=== PATIENT | male | born 1955 | race Caucasian/White ===

== ENCOUNTER → 2022-06-26 10:44 | Outpatient (CLI) | payer MEDICARE, OTHER, SELFPAY ==
--- NOTE | ~2022-06-26 | XR_ITS ---
EXAMINATION: XR sacroiliac joints min 3V INDICATION: Sacrococcygeal disorders not elsewhere classified TECHNIQUE: Three views of the sacroiliac joints are obtained. COMPARISON: None available FINDINGS: Bone alignment is normal. There is no fracture. There is no abnormal erosion or sclerosis o f the sacroiliac joints. There appears to be superior fusion of the sacroiliac joints bilaterally. T here is mild osteoarthritis of the hips. IMPRESSION: 1. Bilateral fusion of the superior sacroiliac joints. No acute findings. Reviewed, dictated and finalized at location B.
--- NOTE | ~2022-06-26 | XR_ITS ---
EXAMINATION: XR lumbar spine 2-3V DATE: 06/26/2022 11:55 INDICATION: Low back pain TECHNIQUE: Anteroposterior and lateral views of the lumbar spine, and cone-down lateral view of the l umbosacral junction were obtained. COMPARISON: None. FINDINGS: Bone alignment is normal. There is no fracture. The vertebral body heights and alignment ar e normal. There is moderate facet joint osteoarthritis of the lower lumbar spine. Degenerated osteoph ytes project from the anterior endplates of multiple vertebral bodies. IMPRESSION: 1. Mild lumbar spondylosis without acute findings. Reviewed, dictated and finalized at location B.
== END ==
PROVIDERS: PCP Family Medicine; Visit Provider Family Medicine
DX: M53.3 Sacrococcygeal disorders, not elsewhere classified (principal); M54.50 Low back pain, unspecified; M43.06 Spondylolysis, lumbar region
CPT/HCPCS: 72100; 72202

== ENCOUNTER 2024-12-18 00:33 | Day surgery (SDC) | payer MEDICARE, OTHER, SELFPAY ==
--- OUTSIDE RECORDS SUMMARY | 2024-02-02 04:00 | XMS_ITS ---
Author Organization [facility] Address [address] [place] [address] Care Team Providers Care Cake Maker Name Role Phone Dr. Heather Burgos Primary Care Provider [phone] Migration, Provider Unavailable Unavailable REASON FOR VISIT EMR-Adam Encounters Encounter Location Date Provider Diagnosis [facility] [address] [place] [address] 02/02/2024 Provider Migration Plan Of Treatment Medication Medication Name Sig Start Date Stop Date Notes Furosemide 20 MG Tablet 1 Oral every day ; Duration: 07/26/2021 01/19/2022 ,discontinuereason:D i scontinued Fenofibrate 54 MG Tablet 1 Oral every ni ght at bedtime; Duration: 05/02/2023 10/28/2023 Vitamin D (Ergocalciferol) 1.25 MG (01869 UT) Capsule 1 Oral once a week; [...] 07/21/2022 12/10/2022 ,dis continuereason:Di scontinued *Reorder from [facility] for eRx and Interaction Alerts* Ketoconazole 2 % Shampoo External; Duration: 30 06/26/2022 07/25/2022 Atorvastatin Calcium 40 MG Tablet 1 Oral at bed time; Duration: 90 05/02/2023 08/20/2023 ,discontinuereason:D i scontinued Doxycycline Hyclate 100 MG Capsule 1 Oral two times a day; Duration: 10 06/26/2022 07/05/2022 Next Appt Details Provider Name:Enrique Dacosta [facility], 08/14/2025 10:30:00 AM, [address] [place], [address], [phone] Progress Notes * GINGER JamesDOB: (69 yo M)Acc No.[id number]:02/02/2024 Patient: James SHEEHAN :1955 A ge:68 Y S ex:Male Address:[address] [place] [phone] * Refills Stop Furosemide Tablet, 20 MG, [...] Stop Vitamin D (Ergocalciferol) Capsule, 1.25 MG (83410 UT), Oral, 10, 1, once a week, [...]
--- OUTSIDE RECORDS SUMMARY | 2024-02-03 04:00 | XMS_ITS ---
Author Organization [facility] Address [address] [place] [address] Care Team Providers Care Lmft Name Role Phone Dr. Heather Burgos Primary Care Provider [phone] Migration, Provider Unavailable Unavailable Allergies No Known [...] with Aloe oral; Duration: 0 *Reorder from [facility] for eRx and Interaction Alerts* 07/13/2021 [...] drinks:Socially Encounters Encounter Location Date Provider Diagnosis [facility] [address] [place] [address] 02/03/2024 Provider Migration Plan Of Treatment Next Appt Details Provider Name:Enrique arreaga, 08/14/2025 10:30:00 AM, [address] [facility], [place], [address], [phone] Progress Notes * James MILESDOB: (69 yo M)Acc No.[id number]:02/03/2024 Patient: James SHEEHAN :1955 A ge:68 Y S ex:Male Address:[address] [place] [phone] Subjective: * Chief Complaints: * E MR-Adam [...] oral , Notes to Pharmacist: *Reorder from [facility] for eRx and Interaction Alerts*Atorvastatin Calcium [...] oral , Notes to Pharmacist: *Reorder from [facility] for eRx and Interaction Alerts*Taking Atorvastatin [...]
--- NOTE | 2024-12-11 08:20 | PC.NURSE ---
[facility] has started construction of its new state of the art ER which will open Spring 2026. With this, we anticipate parking may be a challenge for some our surgical patients and families. Parking spaces are limited but are available for all Surgical, obstetrics, and ER patients sharing this lot. If you arrive and find you are having a hard time finding a parking space, please note that we understand the challenges, please drive around the hospital and park near Hospital Entrance 1. When you enter this entrance, you can ask a volunteer to direct or take you back to the surgical waiting area to check in. We appreciate everyone?s understanding of these expected challenges while we build for your future. Report to the Outpatient Waiting Room, entrance under the green pavilion located off [address], at time _6 am on date __12/18/24 . Planned Procedure Time: __7:30 am .? Time changes happen often and if your time is changed the preop area will call you the afternoon before. - You and your visitor will be asked to self-screen and do not enter if you have any COVID symptoms. Please call surgeon if you need to reschedule. - A mask is optional within the hospital at this time. Patients may have clear liquids (water, carbonated beverages, clear teas, apple juice) until 3 hours prior to surgery( (4:30 AM ) with a maximum of 20 ounces. - No food from midnight until time of surgery and no smoking, or chewing tobacco (or any form of nicotine). No chewing gum, candy or mints. Take only the following medications with a SIP of water on the morning of surgery: ____NONE DO NOT STOP ANY OF YOUR OTHER PRESCRIPTION MEDICATIONS PRIOR TO SURGERY EXCEPT THE FOLLOWING Hold all vitamins and supplements for 3 days per anesthesiologist.LAST DOSE Medications to discontinue per physician PATIENT STATE HOLD ASPIRIN _7 DAYS PRE OP PER DR VANESSA Date to take last dose____12/10/24 Please no make-up, nail hebrew, hairspray, perfume, deodorant, or body powder the day of surgery.? No jewelry (including any body piercings) or valuables the day of surgery, leave them at home.? Please take a shower or bath the night before, or the morning of, surgery with an antibacterial soap.? Wear comfortable, loose fitting clothing.? Children are encouraged to wear pajamas. - Jewelry must be removed prior to entering the operating room.? Rings and piercings that are not removed may be cut off. - The hospital will not accept responsibility for valuables.? - Please leave all valuables, including medications, at home the day of surgery. If you are going home after surgery, a licensed escort vehicle driver must drive you home.? - NO public transportation without another adult if you receive anesthesia. - We recommend that an adult stay with you for 24 hours following discharge. - We also recommend that you do not drive, make important decision, drink alcoholic beverages, or take any drugs that were not prescribed by your health care provider for at least 24 hours after your discharge time. Follow any additional instructions given to you from your surgeon. Telephone instructions given to __PATIENT and asked if any additional questions and then verbalized understanding. Patient advised to call surgeon office or pre surgery nurse liaison [phone] if any additional questions.
[2024-12-11 08:37] VITALS: BMI 30.2
--- NOTE | 2024-12-15 07:15 | PM.HPGS ---
History of Present Illness History of Present Illness Consent: Risks, benefits, and alternatives have been discussed and questions answered. Patient agrees to proceed with procedure. Chief complaint: Elev PSA Narrative: James Sargent is a 69 year old male with elevated PSA: 12/17/24: Care transferred to Dr. Ruiz after Dr. López care home 09/2024: PSA: 9.52 10/23/24: 4K score: 72.3 The?probability?of?having?aggressive?prostate?cancer: 4KScore?Range?%?Probability?95%?CI ?<5.0?4.1%?2.1%,??7.9% ?? 5.0?to?<10.0?9.6%?5.8%,?15.5% ? 10.0?to?<20.0?19.7%?14.8%,?25.8% ?? >?or?=??20.0? 49.4%?44.5%,?54.3% ?? >?or?=??20.0?49.4%?44.5%,?54.3% 10/2024: mpMRI: - volume: 29.6 - MANSI #1: PI-RADS 4: Left posterior apex - MANSI #2: PI-RADS 5: Midline anterior apex Review of Systems Review of Systems: All systems reviewed & are unremarkable except as noted in HPI and below Cardiovascular: Cardiovascular: Denies chest pain, Denies lightheadedness, Denies palpitations and Denies dyspnea Respiratory: Respiratory: Denies dyspnea Gastrointestinal: Gastrointestinal: Denies diarrhea, Denies nausea and Denies vomiting Genitourinary: Genitourinary: Denies hematuria and Denies dysuria Endocrine: Endocrine: Denies palpitations [facility] Social History Social History Smoking status: Never smoker Alcohol intake: current Drinks per week: 3 Living arrangements: with family Spiritual care concerns: No Meds Home Medications and Allergies Home Medications ?Medication ?Instructions ?Recorded ?Confirmed ?Type aspirin 81 mg capsule 81 mg PO DAILY 12/11/24 12/11/24 History atorvastatin 40 mg tablet 40 mg PO DAILY 12/11/24 12/11/24 History cholecalciferol (vitamin D3) 125 125 mcg PO DAILY 12/11/24 12/11/24 History mcg (5,000 unit) capsule cyanocobalamin (vitamin B-12) 500 250 mcg PO DAILY 12/11/24 12/11/24 History mcg tablet famotidine 20 mg tablet (Acid 20 mg PO PRN PRN heartburn 12/11/24 12/11/24 History Controller) fenofibrate 54 mg tablet 54 mg PO DAILY 12/11/24 12/11/24 History losartan 50 mg tablet 50 mg PO DAILY 12/11/24 12/11/24 History tamsulosin 0.4 mg capsule 0.4 mg PO DAILY 12/11/24 12/11/24 History Allergies Allergy/AdvReac Type Severity Reaction Status Date / Time No Known Allergies Allergy Verified 12/11/24 08:21 Exam Const: General: no acute distress Resp: Effort & Inspection: normal respiratory effort GI: Inspection: non-distended GI Palp: No abdominal tenderness and No Guarding due to palpation present (GI) Auscultation: normal bowel sounds Assessment and Plan Assessment and plan (1) Elevated PSA: Code(s): R97.20 - Elevated prostate specific antigen [PSA] Status: Acute Assessment and Plan: Transrectal ultrasound guided fusion biopsy prostate
--- OUTSIDE RECORDS SUMMARY | 2024-12-18 00:36 | XMS_ITS | Patient Health Record ---
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 Heather Burgos Primary Care Provider [phone] Enrique Paz Unavailable [phone] Heather Dominguez Unavailable [phone] Migration, Provider Unavailable Unavailable Allergies No Known Allergies Results Component Value Reference Range Flag Notes CBC w Auto Diff Reviewed date:08/06/2024 03:01:14 PM Interpretation: Performing Lab: Notes/Report: Test Performed by: [place] [address] [place] Tier: Justo Le DO WBC 6.1 4.0-11.7 K/mcL RBC 5.02 4.28-5.56 x10*6/mcL Hgb 15.1 13.0-17.0 g/dL Hct 44.7 38.1-48.9 % MCV 89.0 83.4-98.1 fL MCH 30.1 27.0-34.2 pg MCHC 33.8 31.8-35.3 g/dL RDW 12.8 12.0-16.4 % Platelets 209 149-393 K/mcL MPV 8.2 7.0-11.0 fL Neutro Auto 62.0 45.3-79.0 % Lymph Auto 24.8 11.8-45.9 % Stark Auto 9.8 4.4-12.0 % Eosinophil Auto 2.8 0.0-6.3 % Basophil Auto 0.6 0.2-1.6 % Neutro Absolute 3.8 2.4-8.4 x10*3/mcL Lymph Absolute 1.5 0.8-3.7 x10*3/mcL Stark Absolute 0.6 0.3-1.1 x10*3/mcL Eos Absolute 0.2 0.0-0.5 x10*3/mcL Comprehensive Metabolic Pane l Reviewed date:08/06/2024 03:01:14 PM Interpretation: Performing Lab: Notes/Report: Test Performed by: [place] [address] [place] Tier: Justo Le DO Glucose Lvl 136 74-109 mg/dL H ADA risk stratification for diabetes <100 mg/dL = Normal 100-125 mg/dL = Increased risk for future diabetes >=126 mg/dL = Diabetes, if on more than one testing occasion BUN 17 7-25 mg/dL Creatinine Lvl 1.07 0.70-1.30 mg/dL eGFR CKD-EPI 75 >=90 mL/min/1.73 m2 L The CKD-EPI equation is validated in individuals 18 years of age and older. It is less accurate in patients with extremes of muscle mass, restriction of dietary protein, ingestion of creatine, extra-renal metabolism of creatinine, or treatment with medications that affect renal tubular creatinine secretion. GFR Categories in Chronic Kidney Disease (CKD) GFR GFR (mL/min/1.73 Category: square meters): Interpretation: G1 90 or greater Normal or high* G2 60-89 Mild decrease* G3a 45-59 Mild to moderate decrease G3b 30-44 Moderate to severe decrease G4 15-29 Severe decrease G5 14 or less Kidney failure *In the absence of evidence of kidney damage, neither GFR category G1 nor G2 fulfill the criteria for CKD (Kidney Int Suppl 2013;3:1-150) Calcium Lvl 9.3 8.6-10.3 mg/dL Sodium Lvl 139 136-145 mmol/L Potassium Lvl 4.2 3.5-5.1 mmol/L Chloride Lvl 106 98-107 mmol/L CO2 28 21-31 mmol/L Anion Gap 5.0 <=16.0 mmol/L Alk Phos 66 34-104 unit/L Bilirubin Total 0.9 0.3-1.0 mg/dL Albumin Lvl 4.4 3.5-5.2 g/dL Protein Total 6.9 6.4-8.9 g/dL Albumin/Globulin Ratio 1.7 1.1-2.5 ALT 12 7-52 unit/L AST 12 13-39 unit/L L Lipase Level Reviewed date:08/06/2024 03:01:14 PM Interpretation: Performing Lab: Notes/Report: Test Performed by: [place] [address] [place] Tier: Justo Le DO Lipase Lvl 24 11-82 unit/L CT Abdomen and Pelvis with c linneat ([id number]) Reviewed date:08/07/2024 12:47:33 PM Interpretation: Performing Lab: Notes/Report: Thyroid Peroxidase {TPO} Ab- [facility] Reviewed date:09/02/2024 09:05:38 AM Interpretation: Performing Lab: Notes/Report: Test Performed by: [place] [address] [place] Tier: Justo Le DO TPO (Thyroid Peroxidase) See Below Chart Name Results Units Flag Ref Range Thyroid Peroxidase (TPO) Ab 0.6 0.0-9.0 Performed By: [facility] [address] [place] [id number] Director Pharmaceutical: Win Vines MD, PhD CLIA Number: [id number] Free Reviewed date:09/02/2024 09:05:38 AM Interpretation: Performing Lab: Notes/Report: Test Performed by: [place] [address] [place] Tier: Justo Le DO T4 Free 0.89 0.60-1.70 ng/dL T3 Total Reviewed date:09/02/2024 09:05:38 AM Interpretation: Performing Lab: Notes/Report: Test Performed by: [place] [address] [place] Tier: Justo Le DO T3 Total 1.14 0.78-2.00 ng/mL Thyroid Stimulating Hormone Reviewed date:09/02/2024 09:05:38 AM Interpretation: Performing Lab: Notes/Report: Test Performed by: [place] [id number] [place] Tier: Justo Le DO TSH 3.04 0.45-5.33 mcIU/mL Reason For Referral Reason [facility] , elevated PSA at 9.52 Diagnosis 1 Elevated prostate sp ecific antigen (PSA) (R97.20) Referral Organization [facility] Referring Provider First Name Enrique Referring Provider Last Name Brandi Referring Provider Speciality Physician Neuropsychiatric Aide Referred Provider Specialty Urology General Notes Maddie Hannon 0 08/15/2024 10:53:40 AM CDT >Referral faxed to [facility] [phone], Manuel Petra 12/10/2024 05:43:15 PM CDT >consult note in chart Referral Priority Routine Referral Appointment Date 09/17/2024 Medications Medication SIG (Take, Route, Frequency, Duration) Notes Start Date End Date Status Tamsulosin HCl 0.4 MG Capsule Take one (1) capsule by mouth every day Orally Once a day; Duration: 90 days Active Fenofibrate 54 MG Tablet 1 Oral every night at bedtime; Duration: 90 days 11/12/2023 Active Vitamin D-3 with Aloe oral; Duration: 0 *Reorder from [employer] for eRx and Interaction Alerts* 07/13/2021 Active Losartan Potassium 50 MG Tablet 1 Oral every day; Duration: 90 days 11/12/2023 Active Atorvastatin Calcium 40 MG Tablet 1 tablet Oral daily; Duration: 90 days at bedtime 11/12/2023 Active Famotidine 10 mg Tablet 1 Oral two times a day; Duration: 0 days As needed 08/16/2020 Active Vitamin B-12 1000 MCG Tablet Oral; Duration: 0 07/13/2021 Active Aspirin Adult Low Strength 81 MG Tablet Delayed Release 1 Oral every day; Duration: 0 08/16/2020 Active Immunizations Vaccine Route Administration Date Status Comme nts Zoster Unknown 11/27/2019 Administered Source VFC Code: : Zoster Unknown 02/05/2020 Administered Source VFC Code: : Typhoid, unspecified formulation Unknown 07/09/2008 Administered [facility]D ,sourcename : Historical information -from other registry Source VFC Code: : Tdap Unknown 05/18/2008 Administered Source VFC Code: : Tdap IM Intramuscular 12/11/2022 Administered ,[facility] ename : New immunization record ,immstatus : Complete Influenza, quadrivalent (IIV4), split virus, 6-35 months dosage Unknown 11/27/2019 Administered Source VFC Code: : Influenza, high-dose seasonal, quadrivalent, preservative free >65 yrs Unknown 12/28/2020 Administered Source VFC Code: : Influenza, high-dose seasonal, quadrivalent, preservative free >65 yrs IM Intramuscular 12/11/2022 Administered ,sourcename : N ew immunization record ,immstatus : Complete Influenza, high dose seasonal Unknown 11/17/2021 Administered Source VFC Code: : Hep B, adult (2 dose schedule) Unknown 05/18/2008 Administered Source VFC Code: : Hep B, adult (2 dose schedule) Unknown 06/23/2008 Administered Source VFC Code: : Hep B, adult (2 dose schedule) Unknown 12/08/2008 Administered Source VFC Code: : Hep A, Adult Unknown 02/15/1996 Administered Source VFC Code: : Hep A, Adult Unknown 10/10/1996 Administered Source VFC Code: : Pneumococcal polysaccharide PPV23 IM Intramuscular 10/21/2020 Administered ,sourcename : N ew immunization record ,immstatus : Complete Moderna Covid-19 Vaccine 1st dose IM Intramuscular 04/08/2020 Administered Source VFC Code: : Moderna Covid-19 Vaccine 1st dose IM Intramuscular 05/06/2020 Administered Source VFC Code: : Moderna Covid-19 Vaccine 1st dose Unknown 12/28/2020 Administered Source VFC Code: : Moderna Covid-19 Vaccine 1st dose IM Intramuscular 06/21/2021 Administered Source VFC Code: : Moderna Covid-19 Vaccine 1st dose Unknown 11/17/2021 Administered Source VFC Code: : Social History Social History Drug/Alcohol: Social Info Question Answer Notes AUDIT-C (Standard) Did you have a drink containing alcohol in the past year? Yes How often did you have a drink containing alcohol in the past year? 2 to 3 times a week (3 points) How many drinks did you have on a typical day when you were drinking in the past year? 1 or 2 drinks (0 point) How often did you have six or more drinks on one occasion in the past year? Never (0 point) Points 3 Interpretation Negative Additional Details Category Social Info Options Details Migrated Social History Migrated Social History Tobacco history:Never smoker , Alcohol history:Currently drinks alcohol , Frequency of drinks:Socially Problems Problem Type SNOMED Code ICD Code Onset Dates Problem Status W/U Status Risk Notes Problem Problem, abnormal examination (01681404) Encounter for general adult medical examination with abnormal findings (Z00.01) Problem resolved confirmed Problem Screening for malignant neoplasm of prostate (353433221) Special screening for malignant neoplasm of prostate (V76.44) Problem resolved confirmed Problem Sacrococcygeal disorders, not elsewhere classified (M53.3) Active confirmed Problem Folliculitis (57545600) Follicular disorder, unspecified (L73.9) Active confirmed Problem Gastro-esophageal reflux disease without esophagitis (756382782) Gastro-esophageal reflux disease without esophagitis (K21.9) Active confirmed Problem Peripheral venous insufficiency (47561112) Venous insufficiency (chronic) (peripheral) (I87.2) Active confirmed Problem Hyperlipidemia (26469080) Hyperlipidemia, unspecified (E78.5) Active confirmed Problem Vitamin D deficiency (80627223) Vitamin D deficiency, unspecified (E55.9) Active confirmed Problem Vitamin B deficiency (92661318) Deficiency of other specified B group vitamins (E53.8) Active confirmed Problem Removal of suture (75381362) Encounter for removal of sutures (V58.32) Problem resolved confirmed Problem Open wound of scalp (disorder) (428437093) Open wound of scalp, without mention of complication (873.0) Problem resolved confirmed Problem Body mass index 30.00 to 34.99 (192346647114523) Body mass index (BMI) 31.0-31.9, adult (Z68.31) 024 Active confirmed Problem Screening for malignant neoplasm of prostate (197835130) Encounter for screening for malignant neoplasm of prostate (Z12.5) Active confirmed Problem Essential hypertension (93116655) Essential (primary) hypertension (I10) Active confirmed Problem Removal of suture (97948767) Encounter for removal of sutures (Z48.02) Problem resolved confirmed Problem Abrasion and/or friction burn of trunk without infection (80504728) Abrasion of scrotum and testes, initial encounter (S30.813A) Problem resolved confirmed Problem Eruption of skin (974062468) Rash and other nonspecific skin eruption (R21) Problem resolved confirmed Problem Gastro-esophageal reflux disease with esophagitis (036167998) Gastro-esophageal reflux disease with esophagitis (K21.0) Problem resolved confirmed Problem Candidiasis (42584691) Candidiasis, unspecified (B37.9) Problem resolved confirmed Problem General examination of patient (913314952) Routine general medical examination at health care facility (V70.0) Problem resolved confirmed Problem Esophageal reflux (239885216) Esophageal reflux (530.81) Problem resolved confirmed Problem Candidiasis of s kin and nails (112.3) Problem resolved confirmed Problem Prediabetes (646963154) Prediabetes (R73.03) Active confirmed Problem Screening for malignant neoplasm of colon (644054268) Encounter for screening for malignant neoplasm of colon (Z12.11) Active confirmed Problem Hypothyroidism (69104669) Hypothyroidism, unspecified (E03.9) Active confirmed Problem Tinea cruris (556868032) Tinea cruris (B35.6) Active confirmed Problem Open wound of scalp without complication (64593079) Laceration without foreign body of scalp, initial encounter (S01.01XA) Problem resolved confirmed Problem Actinic keratosis (399505) Actinic keratosis (L57.0) Problem resolved confirmed Problem Vaccination needed (532674256830366) Need for prophylactic vaccination and inoculation, Other viral diseases (V04.89) Problem resolved confirmed Problem Family history of ischemic heart disease (268585206) Family history of ischemic heart disease and other diseases of the circulatory system (Z82.49) Active confirmed Problem Electrocardiogram abnormal (755314525) Abnormal electrocardiogram [ECG] [EKG] (R94.31) Active confirmed Vital Signs Heart Rate 65 /min 08/14/2024 98.6 Temperature 98.6 degrees Fahrenheit 08/14/2024 98.6 Respiratory Rate 18 /min 08/06/2024 Blood pressure diastolic 76 mm Hg 08/14/2024 98. 6 Height-cm 175.26 cm 08/14/2024 98.6 Oximetry 96 % 08/14/2024 98.6 Weight-kg 97.43 kg 08/14/2024 98.6 Height 69.0 in 08/14/2024 98.6 Blood pressure systolic 126 mm Hg 08/14/2024 98.6 Weight 214.8 lbs 08/14/2024 98.6 BMI 31.72 kg/m2 08/14/2024 98.6 Encounters Encounter Location Date Provider Diagnosis [address] [address] 08/06/2024 Heather Dominguez LUQ discomfort R10.12 and LLQ abdominal pain R10.[address] [address] 08/14/2024 [facility] Encounter for subsequent annual wellness visit (AWV) in Medicare patient Z00.00 ; Elevated prostate specific antigen (PSA) R97.20 ; Hypothyroidism, unspecified E03.9 ; Essential (primary) hypertension I10 and Hyperlipidemia, unspecified E78.[address] [address] 02/02/2024 Provider Migration [address] [address] 02/03/2024 Provider Migration [address] [address] 06/24/[address] [address] 08/06/2024 Heather Dominguez Abnormal abdominal CT scan R93.[address] [address] 08/08/2024 Dr. Romero [address] [address] 08/12/2024 Dr. Heather Burgos [address] [address] 08/14/2024 Dr. Romero [address] [place] [address] 09/02/2024 [facility] [address] [place] [address] 07/04/2024 Dr. Heather Burgos Assessments Encounter Date Diagnosis (ICD Code) Assessment Notes Treatment Notes Treatment Clinical Notes Section Notes 08/06/[address] scan (ICD-10 - R93.5) 08/14/2024 Encounter for subsequent annual wellness visit (AWV) in Medicare patient (ICD-10 - Z00.00) AWV Instructions The patient's health risk assessment was reviewed during this visit. The patient's chart was reviewed and updated See scanned images from paperwork reviewed and completed today The following topics have been addressed/discussed at today's visit: All recommended screening services (as applicable) including infectious diseases, osteoporosis, diabetes and/or diabetes complications, glaucoma, cognitive impairment, hearing impairment, alcohol misuse, cancer screening Fall risk assessment Alcohol misuse Counseling (if applicable) Tobacco Cessation Counseling (if applicable) Immunizations Vital Signs End of Life Care Patient was provided with a written copy of the care plan from today's visit to include topics of Fall prevention, Nutrition, Physical activity, Tobacco-use cessation, Social engagement, Weight loss, Cognition. PHQ-9 was administered today. 5 Mins spent discussing with the patient. 08/14/2024 Elevated prostate specific antigen (PSA) (ICD-10 - R97.20) Most recent PSA 9+, last drawn in 2022 was 5 at that time. 08/06/2024 LLQ abdominal pain (ICD-10 - R10.32) 08/06/2024 LUQ discomfort (ICD-10 - R10.12) 08/14/2024 Hypothyroidism, unspecified (ICD-10 - E03.9) TSH 5 (06/2024), rechecking TSH. Ordering T4, T3 and TPO. Would start thyroid replacement if indicative of hypothyroidism. 08/14/2024 Essential (primary) hypertension (ICD-10 - I10) Controlled and stable on losartan. 08/14/2024 Hyperlipidemia, unspecified (ICD-10 - E78.5) Controlled and stable on fenofibrate and statin. 08/06/2024 Other - Vital signs stable in office; afebrile, not tachycardic. - Differential diagnosis includes musculoskeletal pain vs. diverticulitis/dive rticulosis vs. colitis vs. constipation. Less likely to be spleen or pancreas-related due to lack of early satiety and specific pain patterns. Could also be related to peptic ulcer vs. GERD. - Continue taking Famotidine as directed. - Ordered a CT scan of the abdomen/pelvis with IV contrast to rule out acute issues. - Perform basic labs to check white blood cell count, liver/kidney function and pancreatic enzymes. - CT scan scheduled for 1pm today at [facility] Advise to go to the ER if symptoms worsen before the scheduled scan. - Labs to be done in office today - stat. *Spent 40 minutes with patient today and reviewed recent lab results during visit as well. Plan Of Treatment Pending Test Test Name Order Date CT Scan : Chest 08/06/2024 Next Appt Details Provider Name:Enrique arreaga, 08/14/2025 10:30:00 AM, [address] [place], [address], [phone] Insurance Providers Payer Name Payer Address Payer Phone Subscriber Number Group Number Insured Name Patient Relationship to Insured Coverage Start Date Coverage End Date [facility] Medicare B [address] [place] [address] [id number] James Sargent Self - patient is the insured 2 [employer] [employer] [address] [place] [address] [id number] James Sargent Self - patient is the insured 2 [employer] RHC [address] [place] [address] [id number] James Sargent Self - patient is the insured 2 Medical (General) History Medical History History ICD Code Hypothyroidism, unspecified E03.9 Deficiency of other specified B group vi tamins E53.8 Vitamin D deficiency, unspecified E55.9 Hyperlipidemia, unspecified E78.5 Essential (primary) hypertension I10 Venous insufficiency (chronic) (peripher al) I87.2 Gastro-esophageal reflux disease without esophagitis K21.9 Prediabetes R73.03 Family history of ischemic h eart disease and other diseases of the circulatory system Z82.49 Surgical History Surgery Date(Month/Year) Meniscus repair ,notes : left knee nemis cus repair at age 16 Appendectomy 08/13/2017
--- OUTSIDE RECORDS SUMMARY | 2024-12-18 00:36 | XMS_ITS | Clinical Summary ---
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 This disclosure is being madepursuant to the Care Everywhere program and may not contain all information available regarding this patient. Last updated 17.[facility] [employer] Allergies No known active allergies Medications * Be aware that medications may not be up to date on this document. Alwaysverify current medications with the patient. aspirin EC (Ecotrin) 81 MG tablet Take 1 (one) tablet by mouth once daily Active atorvastatin (Lipitor) 40 MG tablet TAKE 1 TABLET(S) BY MOUTH AT BED TIME 3 Active clobetasol (Temovate) 0.05 % solution USE SMALL AMOUNT TOPICALLY TWO TIMES A DAY NEEDED 3 Active Cyanocobalamin 1000 MCG Take 1 (one) tablet by mouth once daily Active famotidine (Pepcid) 10 MG tablet Take 1 (one) tablet by mouth 2 times daily Active fenofibrate (Lofibra) 54 MG tablet TAKE 1 TABLET(S) BY MOUTH EVERY NIGHT AT BEDTIME 3 Active losartan (Cozaar) 50 MG tablet Take 1 (one) tablet by mouth once daily 3 Active mupirocin (Bactroban) 2 % ointment APPLY TO SCALP AREAS TWO TIMES A DAY AND APPLY SMALL AMOUNT TO EACH NARE TWO TIMES A DAY FOR 2 WEEKS 3 Active omeprazole (PriLOSEC) 20 MG capsule Take 1 (one) capsule by mouth Active ciclopirox (Loprox) 1 % shampooIndicatio ns:Other seborrheic dermatitis Apply to wet hair and as body wash, leave on for 3 minutes, then rinse; twice weekly. 30 days supply 60 mL 5 3 Active fluocinonide (Lidex) 0.05 % solutionIndicati ons:Other seborrheic dermatitis Apply to affected skin on scalp twice daily. 30 days supply. 40 mL 5 3 Active triamcinolone acetonide (Kenalog) 0.1 % ointmentIndicati ons:Rash and other nonspecific skin eruption,Other seborrheic dermatitis Apply to affected skin on body twice daily. 30 days supply. 80 g 5 3 Active Active Problems Problem Noted Date Diagnosed Date Hyperlipidemia 08/16/2011 12/12/2022 Social History Tobacco Use Types Packs/Day Years Used Date Smoking Tobacco: Never Smokeless Tobacco: Never Tobacco Cessation:Counseling Given: Not Answered Sex and Gender Information Value Date Recorded Sex Assigned at Male 12/12/2022 8:19 PM CDT Legal Sex Male 4:16 PM CDT Gender Identity Male 12/12/2022 8:19 PM CDT Sexual Orientation Straight 12/12/2022 8: 19 PM CDT Plan of Treatment Health Maintenance Due Date Last Done Comments COLOGUARD (AGES 45-75) - COL ON CA SCREENING 1955 COLON MONITORING 1955 COLONOSCOPY - COLON CA SCREENING 1955 CT COLONOGRAPHY - COLON CA SCREENING 1955 Colorectal Cancer Screening 1955 FIT - COLON CA SCREENING 1955 FLEX SIG - COLON CA SCREENING 1955 MEDICARE AWV 12 MONTHS 1955 HEPATITIS C SCREENING 02/09/1973 DTAP/TDAP/TD VACCINES (1 - Tdap) 1974 PNEUMOCOCCAL VACCINE 50+ (1 of 1 - PCV) 2005 ZOSTER VACCINE (1 of 2) 2005 DEPRESSION SCREENING 03/05/2024 COVID-19 VACCINE (3 - 2024-2 6 season) 2024 05/06/2020, 04/08/2020 INFLUENZA VACCINE (#1) 2024 Respiratory Syncytial Virus (RSV) Vaccine Pt: or over 60 yrs (1 - 1-dose 75+ series) 2030 HEPATITIS B VACCINE Aged Out No longe r eligible based on patient's age to complete this topic HIB VACCINE Aged Out No longer eligi ble based on patient's age to complete this topic HPV VACCINE Aged Out No longer eligi ble based on patient's age to complete this topic MENINGOCOCCAL (Group B) VACCINE SHARED DECISION-MAKING Aged Out No longer eligible based on patient's age to complete this topic MENINGOCOCCAL GROUPS A/C/Y/W VACCINE Aged Out No longer eligible b ased on patient's age to complete this topic Insurance [employer] Care Teams Basket Hand Braider Relationship Specialty Start Date End Date Heather Burgos MD [address] [place] [address] PCP - General Family Medicine 12/12/22
[2024-12-18 06:05] VITALS: BP 139/88; PULSE 65; RESP 16; TEMP 36.7; O2SAT 99
--- NOTE | 2024-12-18 06:23 | WPDHPUPDATE1 ---
History and Physical Update Update Date/Time: 12/18/24 06:23 History and Physical has been reviewed, including an updated exam of the patient. There are NO changes in the patient's condition. Risks, benefits, and alternatives have been discussed and questions answered. Patient agrees to proceed with procedure.
[2024-12-18] MEDS: LACTATED RINGERS 1,000 ML 30 ML IV CONT (06:30)
--- NOTE | 2024-12-18 06:55 | WPDANESEPPF ---
Anes - Initial Pre Proc Eval Procedure: Operation Date: 12/18/24 07:30 Proposed Procedures p Trans Rectal Ultrasound Fusion Guided Prostate Biopsy - Fernandez Ruiz MD Date/Time: 12/18/24 06:55 Surgeon: Fernandez Ruiz MD Pre Op Diagnosis: Elev PSA Patient Data Age: 69 Gender: M Height: 1.78 m Weight: 98.9 kg Last Vital Signs Temp 36.7 C 12/18/24 06:05 Pulse 65 12/18/24 06:05 Resp 16 12/18/24 06:05 BP 139/88 12/18/24 06:05 Pulse Ox 99 12/18/24 06:05 O2 Del Method Room Air 12/18/24 06:05 Allergies Allergy/AdvReac Type Severity Reaction Status Date / Time No Known Allergies Allergy Verified 12/11/24 08:21 Home Medications ?Medication ?Instructions ?Recorded ?Confirmed ?Type aspirin 81 mg capsule 81 mg PO DAILY 12/11/24 12/18/24 History atorvastatin 40 mg tablet 40 mg PO DAILY 12/11/24 12/18/24 History cholecalciferol (vitamin D3) 125 125 mcg PO DAILY 12/11/24 12/18/24 History mcg (5,000 unit) capsule cyanocobalamin (vitamin B-12) 500 250 mcg PO DAILY 12/11/24 12/18/24 History mcg tablet famotidine 20 mg tablet (Acid 20 mg PO PRN PRN heartburn 12/11/24 12/11/24 History Controller) fenofibrate 54 mg tablet 54 mg PO DAILY 12/11/24 12/18/24 History losartan 50 mg tablet 50 mg PO DAILY 12/11/24 12/18/24 History tamsulosin 0.4 mg capsule 0.4 mg PO DAILY 12/11/24 12/18/24 History Patient hx anesthesia problems: none Family hx anesthesia problems: none Results Review: All pre-operative results and documents have been reviewed as part of the pre-operative evaluation. [facility] Past Medical History Medical History (Updated 12/17/24 @ 15:32 by Franklyn Bird DO) Hypertension Hyperlipidemia Social History Social History Smoking status: Never smoker Alcohol intake: current Drinks per week: 3 Living arrangements: with family Spiritual care concerns: No Anes - Eval Final PreProcedure Day of Procedure 12/18/24 06:55 Patient weight: obese Heart: regular rate and rhythm Lungs: clear to auscultation Airway: Mallampati scale class II Neurological: alert and oriented Last oral intake: >/= 8 hours ASA classification: III Emergent: no Anesthetic plan: proceed Anesthesia type and monitoring: general GIVS and standard monitoring Results Review: All pre-operative results and documents have been reviewed as part of the pre-operative evaluation. Informed Consent: The patient's anesthetic plan and its attendant risks and benefits were discussed with the patient/family/POA. Questions were solicited and answers provided to the satisfaction of the patient/family/POA.
[2024-12-18] MEDS: cefTRIAXone 1 GM in SODIUM CHLORIDE 0.9% IV 50 ML 100 ML IVPB (07:30)
--- NOTE | 2024-12-18 07:40 | S_PTH ---
PATIENT: James Sargent LOC: [facility] U#:[id number] AGE/SX: 69/M ROOM: RE12/18/[address]: Fernandez Ruiz MD : 1955 BED: DIS: 12/18/2024 SPEC #: [id number] RECD: 12/18/24 09:34 STATUS: DEEP REKaitlin #: [id number] CORNEL: 12/18/24 07:[address]: Fernandez Ruiz DEPT: [facility] Surgical RECD BY: Kayla Rush ENTERED: 12/18/24 09:36 SP TYPE: Surgical OTHR DR: Heather Burgos MD Tissues: A - Prostate Bx B - Prostate Bx C - Prostate Bx D - Prostate Bx E - Prostate Bx F - Prostate Bx G - Prostate Bx H - Prostate Bx I - Prostate Bx J - Prostate Bx K - Prostate Bx L - Prostate Bx M - Prostate Bx N - Prostate Bx Procedures: Unstained Slides Hematoxylin and Eosin Stain Prostate Biopsy
--- NOTE | 2024-12-18 07:53 | P.OP_ITS ---
Procedure Note - Detailed Date of Procedure 12/18/24 Pre-op Diagnosis Elev PSA Post-op Diagnosis Same Procedure Performed UroNav prostate fusion biopsy Surgeon Fernandez Ruiz MD Anesthesia General Description of Procedure Patient is brought to the operative suite where he is positioned in the left lateral position. Systemic sedation is administered per the anesthesia department. Surgical time-out is undertaken and it's verified the patient has received preoperative antibiotics. Transrectal ultrasonography is undertaken with a standard transrectal probe. The [employer] system is used to superimpose his previously obtained mpMRI prostate images on the real-time transrectal ultrasond images. Prostate volume is calculated at 26cc. On the previous mpMRI there are 2 regions of interest. Using the transrectal needle design for prostate biopsies 3 cores from each region of interest her obtain. We then proceeded with a standard 12 core prostate biopsy. Transrectal probe was removed and patient taken to recovery room having tolerated the procedure well. Blood loss was less than 10 cc.
[2024-12-18 07:57] VITALS: BP 119/63; PULSE 75; RESP 16; O2SAT 96
[2024-12-18 08:25] VITALS: BP 116/67; PULSE 55; RESP 20
[2024-12-18 08:50] VITALS: BP 136/75; PULSE 55; RESP 20
== END 2024-12-18 08:51 | disposition home or self-care (01) ==
PROVIDERS: PCP Family Medicine; Visit Provider Urology
PROC: (CPT 55700; principal; 2024-12-18 07:30)
DX: C61 Malignant neoplasm of prostate (principal); I10 Essential (primary) hypertension; E78.5 Hyperlipidemia, unspecified; E66.9 Obesity, unspecified; Z68.31 Body mass index [BMI] 31.0-31.9, adult; Z79.82 Long term (current) use of aspirin
CPT/HCPCS: 76872; 55700; G0416; J0696; J2003; J2704; J3010; J7120

== ENCOUNTER 2025-01-06 07:39 | Outpatient (CLI) | payer MEDICARE, OTHER, SELFPAY ==
--- OUTSIDE RECORDS SUMMARY | 2023-08-21 07:00 | XMS_ITS ---
Author Organization [facility] Address [address] [place] [address] Care Team Providers Care Recordist Name Role Phone Dr. Heather Burgos Primary Care Provider [phone] Enrique Paz Unavailable [phone] Results Component Value Reference Range Notes AUDIT-C Reviewed date:08/21/2023 12:00:00 AM Interpretation: Performing Lab: Notes/Report: How many standard drinks con taining alcohol do you have on a typical day? 1 or 2 drinks How often do you have 6 or m ore drinks on 1 occasion Never How often do you have a drin k containing alcohol Monthly or less Total Score 1 Patient Health Questionnaire (PHQ9) Reviewed date:08/21/2023 12:00:00 AM Interpretation: Performing Lab: Notes/Report: Feeling bad about yourself o r that you are a failure or have let yourself or your family down 0 Feeling down, depressed, or hopeless 0 Feeling tired or having little energy 1 If you checked off any probl ems, how difficult Not difficult at all have these problems made it for you to do your work, take care of things at home, or get along with other people? 0 Little interest or pleasure in doing things 0 Moving or speaking so slowly that other people could have noticed or the opposite being so figety or restless that you have been moving around a lot more than usual 0 Poor appetite or overeating 0 Thoughts that you would be b jesus off , or of hurting yourself 0 Trouble concentrating on thi ngs, such as reading the newspaper or watching television 0 Trouble falling or staying a sleep, or sleeping too much 0 REASON FOR VISIT AVW Vital Signs Temperature 98.2 degrees Fahrenheit 08/21/19 24 Blood pressure systolic 138 mm Hg 08/21/19 24 Blood pressure diastolic 70 mm Hg 024 Heart Rate 78 /min 08/21/2023 Respiratory Rate 16 /min 08/21/2023 Height 70.00 in 08/21/2023 Weight 222.25 lbs 08/21/2023 BMI 31.89 kg/m2 08/21/2023 Oximetry 97 % 08/21/2023 Height-cm 177.80 cm 08/21/2023 Weight-kg 100.81 kg 08/21/2023 Encounters Encounter Location Date Provider Diagnosis [address] [place] [address] 08/21/2023 Enriquetayo AmayaBrandi Prediabetes R73.03 ; Hyperlipidemia, unspecified E78.5 ; Body mass index (BMI) 31.0-31.9, adult Z68.31 ; Elevated prostate specific antigen [PSA] R97.20 ; Gastro-esophageal reflux disease without esophagitis K21.9 and Encounter for general adult medical examination without abnormal findings Z00.00 Assessments Encounter Date Diagnosis (ICD Code) Assessment Notes Treatment Notes Treatment Clinical Notes Section Notes 08/21/2023 Prediabetes (ICD-10 - R73.03) 08/21/2023 Hyperlipidemia, unspecified (ICD-10 - E78.5) 08/21/2023 Body mass index (BMI) 31.0-31.9, adult (ICD-10 - Z68.31) 08/21/2023 Elevated prostate specific antigen [PSA] (ICD-10 - R97.20) 08/21/2023 Gastro-esophagea l reflux disease without esophagitis (ICD-10 - K21.9) 08/21/2023 Encounter for general adult medical examination without abnormal findings (ICD-10 - Z00.00) Plan Of Treatment Next Appt Details Provider Name:Enriqeu arreaga, 08/14/2025 10:30:00 AM, [address] [place] [address] [facility], [place], [address], [phone] Progress Notes * Filipe MILES: 5 (69 yo M)Acc No.[id number]:08/21/2023 Progress Note Patient: H uston, James Provider: IVÁN Nguyen :1955 A ge:68 Y S ex:Male Date:08/21/2023 Address:[address] [place] [address], [id number] Pcp:Dr. Heather Burgos Subjective: * Chief Complaints: * A VW Objective: * Vitals: B P: 138/70 mm Hg, HR: 78 /min, RR: 16 /min, Temp: 98.2 F, Oxygen sat %: 97 %, Ht: 70.00 in, Wt: 222.25 lbs, Wt-k.81 kg, Ht-cm: 177.80 cm, BMI: 31.89 Index. Past Vitals:* 12/11/2022 BP: 112/64 mm Hg, HR: 82 /mi n, Oxygen sat %: 97 %, Wt: 227.50 lbs, Wt-k.19 kg * 06/26/2022 BP: 168/82 mm Hg, HR: 70 /mi n, Oxygen sat %: 97 %, Wt: 230.38 lbs, Wt-k.50 kg Assessment: * Assessment: 1. H yperlipidemia, unspecified - E78.5 S pecify :Src Diagnosis Name: Hyperlipidemia 2 . G dyan-esophageal reflux disease without esophagitis - K21.9 ?Specify :Src Diagnosis Name: GERD (gastroesophageal reflux disease) 3 . E ncounter for general adult medical examination without abnormal findings - Z00.00 S pecify :Src Diagnosis Name: Encounter for annual wellness visit (AWV) in Medicare patient 4 . P rediabetes - R73.03 5 . E levated prostate specific antigen [PSA] - R97.20 S pecify :Src Diagnosis Name: Elevated PSA 6 . B micky mass index (BMI) 31.0-31.9, adult - Z68.31 Plan: * Labs: * L ab: AUDIT-C Value Reference Range H ow many standard drinks containing alcohol do you have on a typical day? 1 or 2 drinks * H ow often do you have 6 or more drinks on 1 occasion Never * H ow often do you have a drink containing alcohol Monthly or less * T otal Score 1 ?Lab: Patient Health Questionnaire (PHQ9)* Value Reference Range F eeling bad about yourself or that you are a failure or have let yourself or your family down 0 * F eeling down, depressed, or hopeless 0 * F eeling tired or having little energy 1 * I f you checked off any problems, how difficult Not difficult at all have these problems made it for you to do your work, take care of things at home, or get along with other people? 0 * L ittle interest or pleasure in doing things 0 * M oving or speaking so slowly that other people could have noticed or the opposite being so figety or restless that you have been moving around a lot more than usual 0 * P oor appetite or overeating 0 * T houghts that you would be better off , or of hurting yourself 0 * T rouble concentrating on things, such as reading the newspaper or watching television 0 * T rouble falling or staying asleep, or sleeping too much 0 * Electronic signature of Arnulfo Paz on 01/06/2025 at 07:41 AM CAREER AND TRANSITION TEACHER Sign off status: Pending * Provider: IVÁN Nguyen Date: 0 08/21/2023 Generated for Lesa costa/Christina/Nena on: 1 03/08/2024 07:41 AM CAREER AND TRANSITION TEACHER
--- OUTSIDE RECORDS SUMMARY | 2024-02-02 03:00 | XMS_ITS ---
Author Organization [facility] Address [address] [place] [address] Care Team Providers Care Music Store Manager Name Role Phone Dr. Heather Burgos Primary Care Provider [phone] Migration, Provider Unavailable Unavailable REASON FOR VISIT EMR-Adam Encounters Encounter Location Date Provider Diagnosis [facility] [address] [place] [address] 02/02/2024 Provider Migration Plan Of Treatment Medication Medication Name Sig Start Date Stop Date Notes Furosemide 20 MG Tablet 1 Oral every day ; Duration: 07/26/2021 01/19/2022 ,discontinuereason:D i scontinued Fenofibrate 54 MG Tablet 1 Oral every ni ght at bedtime; Duration: 05/02/2023 10/28/2023 Vitamin D (Ergocalciferol) 1.25 MG (93794 UT) Capsule 1 Oral once a week; Duration: 0 10/28/2020 07/12/2021 ,discontinuereason:D i scontinued Ketoconazole 2 % Cream External every day; Duration: 0 07/13/2021 12/10/2022 ,discontinuereason:D i scontinued Potassium Chloride ER 20 MEQ Tablet Extended Release 1 Oral every day; Duration: 07/13/2021 07/25/2021 ,discontinuereason:D i scontinued Cephalexin 500 MG Capsule 1 Oral three times a day; Duration: 08/07/2022 08/16/2022 Losartan Potassium 50 MG Tablet 1 Oral every day; Duration: 05/17/2023 08/20/2023 ,discontinuereason:D i scontinued Terbinafine HCl 250 MG Tablet 1 Oral every day; Duration: 42 07/07/2022 08/17/2022 Triamcinolone Acetonide 0.5 % Cream 1 External two times a day; Duration: 14 10/11/2022 12/10/2022 ,discontinuereason:D i scontinued Triamcinolone Acetonide 0.1 % Cream External two times a day; Duration: 0 07/13/2021 12/10/2022 ,discontinuereason:D i scontinued Mupirocin 2 % Ointment External; Duration: 08/07/2022 08/20/2022 Diclofenac Sodium 75 MG Tablet Delayed Release 1 Oral two times a day; Duration: 0 06/26/2022 12/10/2022 ,discontinuereason:D i scontinued clobetasol 0.05 % ; Duration: 0 07/21/2022 12/10/2022 ,dis continuereason:Di scontinued *Reorder from [facility] for eRx and Interaction Alerts* Ketoconazole 2 % Shampoo External; Duration: 30 06/26/2022 07/25/2022 Atorvastatin Calcium 40 MG Tablet 1 Oral at bed time; Duration: 90 05/02/2023 08/20/2023 ,discontinuereason:D i scontinued Doxycycline Hyclate 100 MG Capsule 1 Oral two times a day; Duration: 10 06/26/2022 07/05/2022 Next Appt Details Provider Name:Enrique Dacosta [facility], 08/14/2025 10:30:00 AM, [address] [place], [address], [phone] Progress Notes * GINGER JamesDOB: (69 yo M)Acc No.[id number]:02/02/2024 Patient: James SHEEHAN :1955 A ge:68 Y S ex:Male Address:[address] [place] [phone] * Refills Stop Furosemide Tablet, 20 MG, Oral, 30, 1, every day, 30 Stop Losartan Potassium Tablet, 50 MG, Oral, 90, 1, every day, 90 Stop Terbinafine HCl Tablet, 250 MG, Oral, 42, 1, every day, 42 Stop Atorvastatin Calcium Tablet, 40 MG, Oral, 90, 1, at bed time, 90 Stop Diclofenac Sodium Tablet Delayed Release, 75 MG, Oral, 30, 1, two times a day, 0 Stop Fenofibrate Tablet, 54 MG, Oral, 90, 1, every night at bedtime, 90 Stop Losartan Potassium Tablet, 50 MG, Oral, 30, 1, every day, 30 Stop Atorvastatin Calcium Tablet, 40 MG, Oral, 90, 1, every night at bedtime, 90 Stop Fenofibrate Tablet, 54 MG, Oral, 90, 1, every night at bedtime, 90 Stop Furosemide Tablet, 20 MG, Oral, 90, 1, every day, 90 Stop Triamcinolone Acetonide Cream, 0.1 %, External, 60, two times a day, 0 Stop Atorvastatin Calcium Tablet, 40 MG, Oral, 90, 1, every night at bedtime, 90 Stop Fenofibrate Tablet, 54 MG, Oral, 90, 1, every night at bedtime, 90 Stop Fenofibrate Tablet, 54 MG, Oral, 90, 1, every night at bedtime, 90 Stop Losartan Potassium Tablet, 50 MG, Oral, 90, 1, every day, 90 Stop Losartan Potassium Tablet, 50 MG, Oral, 90, 1, every day, 90 Stop Losartan Potassium Tablet, 50 MG, Oral, 90, 1, every day, 90 Stop clobetasol, 0.05 %, 1, 0 Stop Losartan Potassium Tablet, 50 MG, Oral, 30, 1, every day, 30 Stop Vitamin D (Ergocalciferol) Capsule, 1.25 MG (94065 UT), Oral, 10, 1, once a week, 0 Stop Atorvastatin Calcium Tablet, 40 MG, Oral, 90, 1, at bed time, 90 Stop Ketoconazole Shampoo, 2 %, External, 120, 30 Stop Losartan Potassium Tablet, 50 MG, Oral, 90, 1, every day, 90 Stop Atorvastatin Calcium Tablet, 40 MG, Oral, 90, 1, every night at bedtime, 90 Stop Atorvastatin Calcium Tablet, 40 MG, Oral, 90, 1, every night at bedtime, 90 Stop Fenofibrate Tablet, 54 MG, Oral, 90, 1, every night at bedtime, 90 Stop Ketoconazole Cream, 2 %, External, 60, every day, 0 Stop Losartan Potassium Tablet, 50 MG, Oral, 90, 1, every day, 90 Stop Doxycycline Hyclate Capsule, 100 MG, Oral, 20, 1, two times a day, 10 Stop Mupirocin Ointment, 2 %, External, 22, 14 Stop Cephalexin Capsule, 500 MG, Oral, 30, 1, three times a day, 10 Stop Losartan Potassium Tablet, 50 MG, Oral, 90, 1, every day, 90 Stop Triamcinolone Acetonide Cream, 0.5 %, External, 45, 1, two times a day, 14 Stop Atorvastatin Calcium Tablet, 40 MG, Oral, 90, 1, at bed time, 90 Stop Fenofibrate Tablet, 54 MG, Oral, 90, 1, every night at bedtime, 90 Stop Fenofibrate Tablet, 54 MG, Oral, 90, 1, every night at bedtime, 90 Stop Ketoconazole Shampoo, 2 %, External, 120, 1, as directed, 0 Stop Losartan Potassium Tablet, 50 MG, Oral, 90, 1, every day, 90 Stop Triamcinolone Acetonide Cream, 0.5 %, External, 45, 1, two times a day, 14 Stop Atorvastatin Calcium Tablet, 40 MG, Oral, 90, 1, every night at bedtime, 90 Stop Atorvastatin Calcium Tablet, 40 MG, Oral, 90, 1, at bed time, 90 Stop Triamcinolone Acetonide Cream, 0.5 %, External, 30, two times a day, 0 Stop Fenofibrate Tablet, 54 MG, Oral, 90, 1, every night at bedtime, 90 Stop Fenofibrate Tablet, 54 MG, Oral, 90, 1, every night at bedtime, 90 Stop Losartan Potassium Tablet, 50 MG, Oral, 90, 1, every day, 90 Stop Fenofibrate Tablet, 54 MG, Oral, 90, 1, every night at bedtime, 90 Stop Furosemide Tablet, 20 MG, Oral, 30, 1, every day, 30 Stop Potassium Chloride ER Tablet Extended Release, 20 MEQ, Oral, 30, 1, every day, 30 Stop Atorvastatin Calcium Tablet, 40 MG, Oral, 90, 1, at bed time, 90 Stop Fenofibrate Tablet, 54 MG, Oral, 90, 1, every night at bedtime, 90 Subjective: * Chief Complaints: * E MR-Adam Objective: Past Vitals:* 12/11/2022 BP: 112/64 mm Hg, HR: 82 /mi n, Oxygen sat %: 97 %, Wt: 227.50 lbs, Wt-k.19 kg * 06/26/2022 BP: 168/82 mm Hg, HR: 70 /mi n, Oxygen sat %: 97 %, Wt: 230.38 lbs, Wt-k.50 kg * * Date:
--- OUTSIDE RECORDS SUMMARY | 2024-02-03 03:00 | XMS_ITS ---
Author Organization [facility] Address [address] [place] [address] Care Team Providers Care Control Clerk Auditing Name Role Phone Dr. Heather Burgos Primary Care Provider [phone] Migration, Provider Unavailable Unavailable Allergies No Known Allergies REASON FOR VISIT EMR-Adam Medications Medication SIG (Take, Route, Frequency, Duration) Notes Start Date End Date Status Famotidine 10 mg Tablet 1 Oral two times a day; Duration: 0 08/16/2020 Active Fenofibrate 54 MG Tablet 1 Oral every night at bedtime; Duration: 11/12/2023 02/09/2024 Active Omeprazole 20 MG Tablet Delayed Release 1 Oral every other day; Duration: 0 08/16/2020 Active Vitamin D-3 with Aloe oral; Duration: 0 *Reorder from [facility] for eRx and Interaction Alerts* 07/13/2021 Active Atorvastatin Calcium 40 MG Tablet 1 Oral at bed time; Duration: 11/12/2023 02/09/2024 Active Vitamin B-12 1000 MCG Tablet Oral; Duration: 0 07/13/2021 Active Aspirin Adult Low Strength 81 MG Tablet Delayed Release 1 Oral every day; Duration: 0 08/16/2020 Active Losartan Potassium 50 MG Tablet 1 Oral every day; Duration: 11/12/2023 02/09/2024 Active Social History Social History Additional Details Category Social Info Options Details Migrated Social History Migrated Social History Alcohol history:Currently drinks alcohol , Tobacco history:Never smoker , Frequency of drinks:Socially Encounters Encounter Location Date Provider Diagnosis [facility] [address] [place] [address] 02/03/2024 Provider Migration Plan Of Treatment Next Appt Details Provider Name:Enrique arreaga, 08/14/2025 10:30:00 AM, [address] [facility], [place], [address], [phone] Progress Notes * James MILESDOB: (69 yo M)Acc No.[id number]:02/03/2024 Patient: James SHEEHAN :1955 A ge:68 Y S ex:Male Address:[address] [place] [phone] Subjective: * Chief Complaints: * E MR-Adam * Surgical History: Meniscus repair ,notes : left knee nemiscus repair at age 16 Appendectomy 08/13/2017 * Family History: F ather: Myocardial infarction. G randfather: Paternal Grandfather: Myocardial infarction.?Brother: Diabetes, G laucoma, T hyroid Cancer. * Social History: M igrated Social History: M igrated Social History: Alcohol history:Currently drinks alcohol,Tobacco history:Never smoker,Frequency of drinks:Socially. * Medications: T akingOmeprazole 20 MG Tablet Delayed Release 1 Oral every other day Fenofibrate 54 MG Tablet 1 Oral every night at bedtime , stop date 02/09/2024spirin Adult Low Strength 81 MG Tablet Delayed Release 1 Oral every day Famotidine 10 mg Tablet 1 Oral two times a day Vitamin B-12 1000 MCG Tablet Oral Losartan Potassium 50 MG Tablet 1 Oral every day , stop date 02/09/2024Vitamin D-3 with Aloe oral , Notes to Pharmacist: *Reorder from [facility] for eRx and Interaction Alerts*Atorvastatin Calcium 40 MG Tablet 1 Oral at bed time , stop date 02/09/2024Taking Omeprazole 20 MG Tablet Delayed Release 1 Oral every other day Taking Fenofibrate 54 MG Tablet 1 Oral every night at bedtime , stop date 02/09/2024Taking Aspirin Adult Low Strength 81 MG Tablet Delayed Release 1 Oral every day Taking Famotidine 10 mg Tablet 1 Oral two times a day Taking Vitamin B-12 1000 MCG Tablet Oral Taking Losartan Potassium 50 MG Tablet 1 Oral every day , stop date 02/09/2024Taking Vitamin D-3 with Aloe oral , Notes to Pharmacist: *Reorder from [facility] for eRx and Interaction Alerts*Taking Atorvastatin Calcium 40 MG Tablet 1 Oral at bed time , stop date 02/09/2024 * Allergies: N .K.D.A. Objective: Past Vitals:* 12/11/2022 BP: 112/64 mm Hg, HR: 82 /mi n, Oxygen sat %: 97 %, Wt: 227.50 lbs, Wt-k.19 kg * 06/26/2022 BP: 168/82 mm Hg, HR: 70 /mi n, Oxygen sat %: 97 %, Wt: 230.38 lbs, Wt-k.50 kg * * Date:
--- NOTE | ~2025-01-06 | PE_ITS ---
EXAMINATION: PET_PETPSMAST_PT DATE: 01/06/2025 09:52 INDICATION: Prostate cancer. TECHNIQUE: 4.788 mCi of Ga-68 gozetotide was administered intravenously. Low dose computed tomography (CT) images were acquired from the base of the brain to the proximal thighs for attenuation correction and anatomic localization. Automated exposure control was employed. Dose-length product (DLP) was 1251 mGy- cm. Positron emission tomography (PET) images were acquired in the same distribution. COMPARISON: None FINDINGS: Head/neck: There are no pathologically enlarged lymph nodes. Chest: There is a tubular branching structure in left lung lower lobe. No pleural effusion. The heart size is normal. There are coronary artery calcifications. No pericardial effusion. Abdomen/pelvis/proximal thighs: The liver, gallbladder, spleen, pancreas, adrenal glands, and kidneys are normal. The prostate is mildly enlarged. There is increased activity in the prostate with maximum SUV of 13.2. There are bilateral inguinal hernias containing fat. There is diverticulosis of the colon without evidence of diverticulitis. The appendix is normal. There are no dilated loops of bowel. There are no pathologically enlarged lymph nodes. There is no free intraperitoneal fluid. There is no osseous malignancy. IMPRESSION: 1. Mildly enlarged prostate with increased activity, consistent with primary malignancy. No evidence of metastatic disease. 2. Tubular structure in left lung lower lobe suspicious for arteriovenous malformation. Chest CT with contrast is recommended. Reviewed, dictated and finalized at location [facility] IMPRESSION: 1. Mildly enlarged prostate with increased activity, consistent with primary ma lignancy. No evidence of metastatic disease. 2. Tubular structure in left lung lower lobe suspicious for arteriovenous malfo rmation. Chest CT with contrast is recommended.
--- OUTSIDE RECORDS SUMMARY | 2025-01-06 07:41 | XMS_ITS | Clinical Summary ---
Author Organization [facility] Address [address] [place] [address] Care Team Providers Care Um Rn Name Role Phone Heather Burgos MD Primary Care Provider Source Comments [facility],non-owned Affiliates and Associated Physician Practices is amultiple site organization consisting of ambulatory clinics and hospital sitesin [place], [place], [place] and [place]. This disclosure is being madepursuant to the Care Everywhere program and may not contain all information available regarding this patient. Last updated 17.[facility] [employer] Allergies No known active allergies Medications * [...] to complete this topic Insurance [employer] [employer] Member Subscriber Plan / Payer (Ef fective for All Dates) Name:James Sargent Relation to Subscriber:Self Name:James Sargent Payer ID:Not on file Group ID:Not on file Type:Commercial Address: [facility] [address] [place], [place] SELF PAY NO INSURANCE Member Subscriber Plan / Payer (Ef fective for All Dates) Name:James Sargent Member ID:Not on file Relation to Subscriber:Not on file Subscriber ID:Not on file Payer ID:Not on file Group ID:Not on file Type:Self Pay Address: [place], [place] [employer] Member Subscriber Plan / Payer (Ef fective for All Dates) Name:James Sargent Relation to Subscriber:Self Name:James Sargent Payer ID:Not on file Group ID:Not on file Type:Commercial Address: [address] [place], [place] SELF PAY NO INSURANCE Member Subscriber Plan / Payer (Ef fective for All Dates) Name:James Sargent Member ID:Not on file Relation to Subscriber:Not on file Subscriber ID:Not on file Payer ID:Not on file Group ID:Not on file Type:Self Pay Address: [place], [place] [employer] SELF PAY NO INSURANCE Member Subscriber Plan / Payer (Ef fective for All Dates) Name:James Sargent Member ID:Not on file Relation to Subscriber:Not on file Subscriber ID:Not on file Payer ID:Not on file Group ID:Not on file Type:Self Pay Address: [place], [place] Care Teams Um Rn Relationship Specialty Start Date End Date Heather Burgos MD [address] [place] [address] PCP - General Family Medicine 12/12/22
--- OUTSIDE RECORDS SUMMARY | 2025-01-06 07:42 | XMS_ITS | Patient Health Record ---
Author Organization [facility] Address [address] [place] [address] Care Team Providers Care Body Repairer Name Role Phone Dr. Heather Burgos Primary Care Provider [phone] Enrique Paz Unavailable [phone] Heather Dominguez Unavailable [phone] Migration, Provider Unavailable Unavailable Allergies No Known Allergies Results Component Value Reference Range Flag Notes Thyroid Peroxidase {TPO} Ab- [facility] Reviewed date:09/02/2024 09:05:38 AM Interpretation: Performing Lab: Notes/Report: Test Performed by: [address] [address] Cloth Finisher: Justo Le DO TPO (Thyroid Peroxidase) See Below Chart Name Results Units Flag Ref Range Thyroid Peroxidase (TPO) Ab 0.6 0.0-9.0 Performed By: [facility] [address] [place] [id number] Academic Director: Win Vines MD, PhD CLIA Number: [id number] T4 Free Reviewed date:09/02/2024 09:05:38 AM Interpretation: Performing Lab: Notes/Report: Test Performed by: [address] [address] Cloth Finisher: Justo Le DO T4 Free 0.89 0.60-1.70 ng/dL T3 Total Reviewed date:09/02/2024 09:05:38 AM Interpretation: Performing Lab: Notes/Report: Test Performed by: [address] [address] Cloth Finisher: Justo Le DO T3 Total 1.14 0.78-2.00 ng/mL Thyroid Stimulating Hormone Reviewed date:09/02/2024 09:05:38 AM Interpretation: Performing Lab: Notes/Report: Test Performed by: [place] [id number] Cloth Finisher: Justo Le DO TSH 3.04 0.45-5.33 mcIU/mL CBC w Auto Diff Reviewed date:08/06/2024 03:01:14 PM Interpretation: Performing Lab: Notes/Report: Test Performed by: [place] [id number] Cloth Finisher: Justo Le DO WBC 6.1 4.0-11.7 K/mcL RBC 5.02 4.28-5.56 x10*6/mcL Hgb 15.1 13.0-17.0 g/dL Hct 44.7 38.1-48.9 % MCV 89.0 83.4-98.1 fL MCH 30.1 27.0-34.2 pg MCHC 33.8 31.8-35.3 g/dL RDW 12.8 12.0-16.4 % Platelets 209 149-393 K/mcL MPV 8.2 7.0-11.0 fL Neutro Auto 62.0 45.3-79.0 % Lymph Auto 24.8 11.8-45.9 % Shack[place]ord Auto 9.8 4.4-12.0 % Eosinophil Auto 2.8 0.0-6.3 % Basophil Auto 0.6 0.2-1.6 % Neutro Absolute 3.8 2.4-8.4 x10*3/mcL Lymph Absolute 1.5 0.8-3.7 x10*3/mcL [place]ackelford Absolute 0.6 0.3-1.1 x10*3/mcL Eos Absolute 0.2 0.0-0.5 x10*3/mcL Comprehensive Metabolic Pane l Reviewed date:08/06/2024 03:01:14 PM Interpretation: Performing Lab: Notes/Report: Test Performed by: [place] [id number] Cloth Finisher: Justo Le DO Glucose Lvl 136 74-109 [...] Lab: Notes/Report: Test Performed by: [facility] [address] [address] Cloth Finisher: Justo Le DO Lipase Lvl 24 11-82 unit/L CT Abdomen and Pelvis with samantha dawson ([id number]) Reviewed date:08/07/2024 12:47:33 PM Interpretation: Performing Lab: Notes/Report: Reason For Referral Reason [facility] , elevated PSA at 9.52 Diagnosis 1 Elevated prostate sp ecific antigen (PSA) (R97.20) Referral Organization [facility] Referring Provider First Name Enrique Referring Provider Last Name Brandi Referring Provider Speciality Physician Tire Service Technician Referred Provider Specialty Urology General Notes Maddie Hannon 0 08/15/2024 10:53:40 AM CDT >Referral faxed to [facility] [phone], Petra Jackson 12/10/2024 05:43:15 PM CDT >consult note in chart Referral Priority Routine Referral Appointment Date 09/17/2024 Medications Medication SIG (Take, Route, Frequency, Duration) Notes Start Date End Date Status Tamsulosin HCl 0.4 MG Capsule Take one (1) capsule by mouth every day Orally Once a day; Duration: 90 days Active Losartan Potassium 50 MG Tablet 1 Oral every day; Duration: 90 days Active Vitamin D-3 with Aloe oral; Duration: 0 *Reorder from [employer] for eRx and Interaction Alerts* 07/13/2021 Active Fenofibrate 54 MG Tablet 1 Oral every night at bedtime; Duration: 90 days Active Atorvastatin Calcium 40 MG Tablet 1 tablet Oral daily; Duration: 90 days at bedtime Active Famotidine 10 mg Tablet 1 Oral two times a day; Duration: 0 days As needed 08/16/2020 Active Vitamin B-12 1000 MCG Tablet Oral; Duration: 0 07/13/2021 Active Aspirin Adult Low Strength 81 MG Tablet Delayed Release 1 Oral every day; Duration: 0 08/16/2020 Active Immunizations Vaccine Route Administration Date Status Comme nts Pneumococcal polysaccharide PPV23 IM Intramuscular 10/21/2020 Administered [...] Unknown 11/17/2021 Administered Source VFC Code: : Zoster Unknown 11/27/2019 Administered Source VFC Code: : Zoster Unknown 02/05/2020 Administered Source VFC Code: : Typhoid, unspecified formulation Unknown 07/09/2008 Administered MCHD ,sourcename : Historical information -from other registry Source VFC Code: : Tdap Unknown 05/18/2008 Administered Source VFC Code: : Tdap IM Intramuscular 12/11/2022 Administered ,sourc ename : New immunization record ,immstatus : [...] Unknown 10/10/1996 Administered Source VFC Code: : Social History [...] Problem Status W/U Status Risk Notes Problem Candidiasis of s kin and nails (112.3) 04/13/2 019 Problem resolved confirmed Problem Esophageal reflux (897045138) Esophageal reflux (530.81) Problem resolved confirmed Problem Open wound of scalp (disorder) (230729947) Open wound of scalp, without mention of complication (873.0) Problem resolved confirmed Problem Vaccination needed (116902699855104) Need for prophylactic vaccination and inoculation, Other viral diseases (V04.89) Problem resolved confirmed Problem General examination of patient (625670299) Routine general medical examination at health care facility (V70.0) Problem resolved confirmed Problem Removal of suture (82662042) Encounter for removal of sutures (V58.32) Problem resolved confirmed Problem Screening for malignant neoplasm of prostate (043344127) Special screening for malignant neoplasm of prostate (V76.44) Problem resolved confirmed Problem Tinea cruris (702824058) Tinea cruris (B35.6) Active confirmed Problem Candidiasis (81922621) Candidiasis, unspecified (B37.9) Problem resolved confirmed Problem Hypothyroidism (69776734) Hypothyroidism, unspecified (E03.9) Active confirmed Problem Vitamin B deficiency (32688701) Deficiency of other specified B group vitamins (E53.8) Active confirmed Problem Vitamin D deficiency (83501422) Vitamin D deficiency, unspecified (E55.9) Active confirmed Problem Hyperlipidemia (09978108) Hyperlipidemia, unspecified (E78.5) Active confirmed Problem Essential hypertension (14066567) Essential (primary) hypertension (I10) Active confirmed Problem Peripheral venous insufficiency (48010321) Venous insufficiency (chronic) (peripheral) (I87.2) Active confirmed Problem Gastro-esophageal reflux disease with esophagitis (343385018) Gastro-esophageal reflux disease with esophagitis (K21.0) Problem resolved confirmed Problem Gastro-esophageal reflux disease without esophagitis (236555773) Gastro-esophageal reflux disease without esophagitis (K21.9) Active confirmed Problem Actinic keratosis (900609) Actinic keratosis (L57.0) Problem resolved confirmed Problem Folliculitis (80409853) Follicular disorder, unspecified (L73.9) Active confirmed Problem Sacrococcygeal disorders, not elsewhere classified (M53.3) Active confirmed Problem Eruption of skin (090284931) Rash and other nonspecific skin eruption (R21) Problem resolved confirmed Problem Electrocardiogram abnormal (227169657) Abnormal electrocardiogram [ECG] [EKG] (R94.31) Active confirmed Problem Open wound of scalp without complication (07303443) Laceration without foreign body of scalp, initial encounter (S01.01XA) Problem resolved confirmed Problem Abrasion and/or friction burn of trunk without infection (71870805) Abrasion of scrotum and testes, initial encounter (S30.813A) Problem resolved confirmed Problem Problem, abnormal examination (50624741) Encounter for general adult medical examination with abnormal findings (Z00.01) Problem resolved confirmed Problem Screening for malignant neoplasm of colon (219406168) Encounter for screening for malignant neoplasm of colon (Z12.11) Active confirmed Problem Screening for malignant neoplasm of prostate (125831839) Encounter for screening for malignant neoplasm of prostate (Z12.5) Active confirmed Problem Removal of suture (72585482) Encounter for removal of sutures (Z48.02) Problem resolved confirmed Problem Family history of ischemic heart disease (478956150) Family history of ischemic heart disease and other diseases of the circulatory system (Z82.49) Active confirmed Problem Prediabetes (362314673) Prediabetes (R73.03) Active confirmed Problem Body mass index 30.00 to 34.99 (024933699290616) Body mass index (BMI) 31.0-31.9, adult (Z68.31) Active confirmed Vital Signs Heart Rate 65 [...] 98.6 Encounters Encounter Location Date Provider Diagnosis [address] [phone] 08/06/2024 Heather Dominguez LUQ discomfort R10.12 and LLQ abdominal pain R10.[address] [address] 08/14/2024 Enrique AmayaBrandi Encounter for subsequent annual wellness visit (AWV) in Medicare patient Z00.00 ; Elevated prostate specific antigen (PSA) R97.20 ; Hypothyroidism, unspecified E03.9 ; Essential (primary) hypertension I10 and Hyperlipidemia, unspecified E78.[address] [address] 02/02/2024 Provider Migration [address] [address] 02/03/2024 Provider Migration [address] [address] 06/24/[address] [address] 08/06/2024 Heather Dominguez Abnormal abdominal CT scan R93.[address] [address] 08/08/2024 Dr. Heather Burgos [address] [address] 08/12/2024 Dr. Romero [address] [address] 08/14/2024 Dr. Heather Burgos [address] [address] 09/02/2024 Enrique Paz [facility] [address] [place] [address] 12/20/2024 Dr. Heather Burgos [facility] [address] [place] [phone] 07/04/2024 Dr. Heather Burgos Assessments Encounter Date Diagnosis (ICD Code) Assessment Notes Treatment Notes Treatment Clinical Notes Section Notes 08/06/[address] scan (ICD-10 - R93.5) 08/06/2024 LLQ abdominal pain (ICD-10 - R10.32) 08/06/2024 LUQ discomfort (ICD-10 - R10.12) 08/14/2024 Encounter for subsequent annual wellness visit [...] in 2022 was 5 at that time. 08/14/2024 Hypothyroidism, unspecified (ICD-10 - E03.9) TSH [...] CT scan scheduled for 1pm today at [facility] Advise to go to the ER if symptoms worsen before the scheduled scan. - Labs to be done in office today - stat. *Spent 40 minutes with patient today and reviewed recent lab results during visit as well. Plan Of Treatment Pending Test Test Name Order Date CT Scan : Chest 08/06/2024 Next Appt Details Provider Name:Enrique arreaga, 08/14/2025 10:30:00 AM, [address] [facility] [place], [address], [phone] Insurance Providers Payer Name Payer Address Payer Phone Subscriber Number Group Number Insured Name Patient Relationship to Insured Coverage Start Date Coverage End Date [facility] Medicare B [address] [place] [address] [id number] James Sargent Self - patient is the insured [address] [address] [id number] James Sargent Self - patient is the insured 2 [facility] Medicare RHC [address] [place] [address] [id number] James Sargent Self - patient is the [...] cus repair at age 16 Appendectomy 08/13/2017 Dr Fernandez Ruiz - [facility] prostate fusi on biopsy 12/18/2024
== END 2025-01-06 07:40 | disposition home or self-care (01) ==
LOC: ANHIMG 07:39
PROVIDERS: PCP Family Medicine; Visit Provider Urology
DX: R91.8 Other nonspecific abnormal finding of lung field (principal); C61 Malignant neoplasm of prostate; I25.10 Atherosclerotic heart disease of native coronary artery without angina pectoris; K40.20 Bilateral inguinal hernia, without obstruction or gangrene, not specified as recurrent; K57.91 Diverticulosis of intestine, part unspecified, without perforation or abscess with bleeding
CPT/HCPCS: 78815; A9596